=== PATIENT | male | born 1975 | race Caucasian/White ===

== ENCOUNTER 2016-11-19 10:44 | Emergency (ER) | payer SELFPAY ==
[2016-11-19 10:56] VITALS: BP 145/96
--- NOTE | 2016-11-19 11:05 | ERNOTE ---
Lower Extremity HPI - Narrative Date of Service: 11/19/16 - General Lower Extremities Pain: leg: right Time Seen by Provider: 11/19/16 10:56 Source: patient Exam Limitations: no limitations - Immun/Allergies/Home Medications Immunizations: IMMUNIZATION HX Immunizations Up to Date Yes History of Influenza Vaccine No Hx Pneumococcal Vaccination No Allergies/Adverse Reactions: Allergies Allergy/AdvReac Type Severity Reaction Status Date / Time No Known Allergies Allergy Verified 11/19/16 10:55 Home Medications: HOME MEDICATIONS Sulfamethoxazole/Trimethoprim [Bactrim Ds] 1 tab PO BID #28 tab 11/19/16 [Last Taken Unknown] - History of Present Illness Narrative: Pt. comes in with c/o R medial, anterior, lower leg wound and pain after he scratched his leg on a trailer 10 months ago. 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 Pt. states that he has had occasional fevers and chills and yellow drainage of the leg, but denies any NVD, GAURANG, CP, Numbness, or tingling. Pt. denies any Recent illness, or prehospital treatment. Review of Systems - Review of Systems Constitutional: Present: fever, chills. Absent: weakness, fatigue, malaise, weight loss EYE: Present: no symptoms reported ENT: Present: no symptoms reported Respiratory: Present: no symptoms reported. Absent: shortness of breath, cough , wheezing Cardiology: Present: no symptoms reported. Absent: chest pain, palpitations, edema Gastrointestinal/Abdominal: Present: no symptoms reported. Absent: nausea, vomiting, diarrhea Genitourinary: Present: no symptoms reported Musculoskeletal: Present: muscle pain - R anterior medial leg. Absent: back pain, joint pain Skin: Present: lesions - open blisters on lower leg Neurological: Present: no symptoms reported. Absent: headache, dizziness/light- headedness, numbness, tingling All Other Systems: All systems neg except as marked - Patient's Past Medical History Patient History - Medical: Anxiety, Other - nec fasc Patient History - Cardiac/Respiratory: No pertinent hx Patient History - Cancer: No Hx of Cancer Patient History - Surgical Procedures: Other Patient History - Other: None - Family History Father Family History - Medical: No pertinent hx, History Unknown Family History - Cardiac/Respiratory: History Unknown, Cardiac Arrest Mother Family History - Medical: History Unknown, Diabetes Type 1, Other Family History - Cardiac/Respiratory: No pertinent hx, History Unknown - Social History Living Situations: home Abuse History: No History of abuse Psych History: No pertinent hx Smoking Status: Never smoker Alcohol Use: none Drug Use: none - Immunizations Immunizations Up to Date: Yes Hx Pneumococcal Vaccination: No History of Influenza Vaccine: No Physical Exam - Physical Exam General Appearance: Present: wd/wn, alert, no apparent distress Eye Exam: Normal inspection: bilateral, PERRL: bilateral, EOMI: bilateral Ears, Nose, Throat: Present: normal ENT inspection, normal pharynx Neck: Present: normal inspection, nontender. Absent: lymphadenopathy (R), lymphadenopathy (L) Respiratory: Present: no respiratory distress, normal breath sounds, no accessory muscle use, chest nontender, lungs clear Cardiovascular/Chest: Present: regular rate, rhythm, no murmur, normal peripheral pulses Gastrointestinal/Abdominal: Present: normal bowel sounds, nontender Back Exam: Present: normal inspection Extremity Exam: Present: other - tenderness of lower leg anterior medially. 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 - Vital Signs Patient's Vital Signs:: I have reviewed the patient's vital signs. Vital Signs: Vital Signs 11/19/16 10:52 Temperature 36.8 C Pulse Rate 80 Respiratory 16 Rate Blood Pressure 145/96 O2 Sat by Pulse 98 Oximetry - X-Ray X-Ray #1 X-Ray: tibula/fibula Interpretation: Reviewed by me X-ray Comments: Findings: Within the mid to distal aspect of the medial calf, there is associated deformity of the overlying soft tissues, which was not present on the prior study from 2008. There is some thickening of the cortex involving the medial distal diaphysis of the tibia with associated well-defined and adjacent amorphous calcification. These findings most likely reflects sequela of prior infection/trauma. The calcification adjacent to the tibia may reflect myositis ossificans. Correlation with previous studies outside studies is recommended. The remaining aspects of the tibia appears intact. The fibula is within normal limits. The knee joint and ankle joint are grossly normal. IMPRESSION: 1. DEFORMITY INVOLVING THE SOFT TISSUES OVERLYING THE MEDIAL MID TO DISTAL RIGHT CALF SUGGESTING SEQUELA OF INFECTION/TRAUMA. I'M NOT CONVINCED OF AIR WITHIN THE SOFT TISSUES. 2. THICKENING THE CORTICAL BONE INVOLVING THE MEDIAL ASPECT OF THE MID TO DISTAL DIAPHYSIS OF THE TIBIA WITH ADJACENT WELL-DEFINED AMORPHOUS CALCIFICATION. THE APPEARANCE SUGGESTS MYOSITIS OSSIFICANS. CORRELATION WITH OUTSIDE STUDIES IS RECOMMENDED. Electronically signed by Juan Raza M.D.. - Progress/Reassessment Chief Complaint: Lower Extremity Pain/ Injury Departure Clinical Impression: Cellulitis Qualifiers: Site of cellulitis: extremity Site of cellulitis of extremity: lower extremity Laterality: right Qualified Code(s): L03.115 - Cellulitis of right lower limb - Departure Disposition: Home self-care Condition: Good Instructions: Cellulitis, Adult, [id number] Additional Instructions: Please follow up with primary provider in 2-3 days and follow up with wound care as scheduled may change outer bandage if needed until seen by them. Referrals: Valeriy Soto DO [Primary Care Provider] - Prescriptions: Sulfamethoxazole/Trimethoprim [Bactrim Ds] 1 tab PO BID #28 tab
--- OUTSIDE RECORDS SUMMARY | 2016-11-19 11:08 | XMS REPORT | Continuity of Care Document ---
:1975 Author Organization [facility] ([facility]) Address [address] [place] [address] Phone [phone] Care Team Providers Name Role Phone Unavailable Primary Care Provider Unavailable Source Comments This disclosure is being made pursuant to the Care Everywhere program, applicable federal and state laws, and may not contain all informaitonavailable regarding this patient.[facility] ([facility]) Active Allergies and Adverse Reactions Not on File Current Medications Not on file Active Problems Not on file Immunizations Name Dates Previously Given Next Due Td, adult unspecified 12/01/1994 Social History Tobacco Use Types Packs/Day Years Used Date Never Assessed Plan of Care Health Maintenance Due Date Last Done Comments Hepatitis B Vaccine (1 of 3 - Primary Series) 1975 Tdap Vaccine 1986 Lipid Disorder Screening 1993 MMR Vaccine 1993 Td Vaccine 12/01/2004 12/01/1994 Influenza Vaccine: Seasonal (#1) 02/16/2016 Results from Last 3 Months Not on file
[2016-11-19 11:18] LABS: Hematocrit 39.7 % (42.0-52.0); Hemoglobin 13.4 gm/dL (13.5-18.0); Mean Cell Volume 88.2 fl (78-100); Mean Corpuscular Hemoglobin 29.8 pg (27-31); Mean Corpuscular Hgb Conc 33.8 g/dl (32-36); Mean Platelet Volume 8.2 fl (6.0-9.5); Neutrophil # 3.9 K/mm3 (1.3-6.0); Neutrophil % 54.6 % (42-75.0); Platelet Count 343 K/mm3 (150-450); Red Cell Distribution Width 12.6 % (11.5-14.0); White Blood Count 7.1 K/mm3 (4.0-10.5)
[2016-11-19] MEDS ORDERED: KETOROLAC TROMETHAMINE 30 MG/ML VIAL IM ONE (11:21)
[2016-11-19] MEDS ORDERED: KETOROLAC TROMETHAMINE 30 MG/ML VIAL ONE (11:30)
[2016-11-19 11:39] LABS: Albumin * 3.3 gm/dl (3.4-5.0); Anion Gap 12.3 mmol/L (6.8-13.8); BUN/Creatinine Ratio 16.4 (9.0-21.6); Bilirubin, Total 0.3 mg/dL (0.0-1.1); Calcium * 8.8 mg/dL (7.9-10.9); Potassium 4.3 mmol/L (3.4-4.6); Total Protein 7.8 gm/dL (6.2-8.2)
== END 2016-11-19 12:09 | disposition home or self-care (01) ==
LOC: ER 10:44
DX: L03.115 Cellulitis of right lower limb (principal)

== ENCOUNTER 2017-02-11 08:46 | Emergency (ER) | payer MEDICAID ==
[2017-02-11 08:59] VITALS: BP 156/100
--- NOTE | 2017-02-11 09:07 | ERNOTE ---
Medical Problem HPI - Narrative Date of Service: 02/11/17 - General Chief Complaint: Laceration Time Seen by Provider: 02/11/17 08:54 Source: patient Exam Limitations: no limitations - Immun/Allergies/Home Medications Immunizations: IMMUNIZATION HX Immunizations Up to Date Yes History of Influenza Vaccine No Hx Pneumococcal Vaccination No Allergies/Adverse Reactions: Allergies No Known Allergies Allergy (Verified 02/11/17 08:58) Home Medications: HOME MEDICATIONS Amox Tr/Potassium Clavulanate [Augmentin 875-125 Tablet] 875 mg PO Q12H #14 tab 02/11/17 [Last Taken Unknown] - History of Present History Narrative: Patient is right handed. Lacerated hes left hand using a knife he had gotten at a sale. Laceration left hand near left index finger knuckle. He denies other injuries. Minimal pain at laceration. Full movement of finger. No N/T/ W. No other injuries. dT within the last 5 years and he is sure of this. Timing: constant Severity: mild Modifying Factors - (Improves): Present: other - nothing Modifying Factors - (Worsens): Present: other - nothing Review of Systems - Review of Systems Constitutional: Absent: fever Musculoskeletal: Present: other - no joint pain Skin: Present: See HPI Neurological: Absent: weakness, numbness, tingling - Patient's Past Medical History Patient History - Medical: Anxiety, Other Patient History - Cardiac/Respiratory: No pertinent hx Patient History - Cancer: No Hx of Cancer Patient History - Surgical Procedures: Other Patient History - Other: None - Family History Father Family History - Medical: No pertinent hx, History Unknown Family History - Cardiac/Respiratory: History Unknown, Cardiac Arrest Mother Family History - Medical: History Unknown, Diabetes Type 1, Other Family History - Cardiac/Respiratory: No pertinent hx, History Unknown - Social History Living Situations: home Abuse History: No History of abuse Psych History: No pertinent hx Smoking Status: Never smoker Alcohol Use: occasionally Drug Use: none - Immunizations Immunizations Up to Date: Yes Hx Pneumococcal Vaccination: No History of Influenza Vaccine: No Physical Exam - Physical Exam General Appearance: Present: alert, no apparent distress Head Exam: Present: normal inspection Respiratory: Present: no respiratory distress Cardiovascular/Chest: Present: normal peripheral pulses Extremity Exam: Present: other - There is a 2 cm laceration left MCP joint area left index finger. Into subQ but no FB. No invasion of the joint but this appears to approximate the tendon sheath. No tendon involvement though. Finger taken through full ROM and no tendon injury noted but to the tendon sheath by my exam. No joint capsule involvement found. Full extension strength and full flexion. Full FDS and FDP strength. Brish capillar refill, no bone tenderness. nothing to suggest need for imaging. Neurological Exam: Present: alert, no motor/sensory deficits, other - sensation to LT intact and full motor Skin Exam: Present: normal color, warm/dry, other - no nail bed injury and brisk capillary refill in finger ED Progress - Vital Signs Patient's Vital Signs:: I have reviewed the patient's vital signs. Vital Signs: Vital Signs 02/11/17 08:52 Temperature 36.8 C Pulse Rate 76 Respiratory 16 Rate Blood Pressure 156/100 O2 Sat by Pulse 98 Oximetry - Progress/Reassessment Chief Complaint: Laceration Progress Note-Subjective: 02/11/17 09:23 D/W Dr Maya. Abx and Tuesday office follow-up. Pt understnds. I discussed warning signs and reasons to return as well as the need for close f/ u. Procedures Left Hand Anesthesia: 1% Lidocaine I & D Prep: sterile drapes applied Length of Repair/Wound (cm): 2 Wound's Depth/Shape: into subcutaneous, linear Wound Explored: clean, to base, no foreign body Wound Intervention: irrigated w/saline Distal NVT: neuro/vasc intact Wound Repaired With: sutures Suture Size/Type: 3-0, nylon Number of Sutures: 4 Layer Closure: Simple Estimated blood loss (ml): 0 Wound Dressing: sterile dressing applied, splint applied Complications: Pt greer procedure well Departure - Departure Clinical Impression: Hand laceration Disposition: Home self-care Condition: Stable Instructions: Laceration Care, Adult, [id number] Additional Instructions: Rest. Antibiotics as directed. Orthopedics will re-check your hand in the office next Tuesday. Call for an appointment. Return for signs of infection, increased pain, drainage, numbness, tingling, weakness, loss of function or if your condition worsens or changes in any way. Prescriptions: Amox Tr/Potassium Clavulanate [Augmentin 875-125 Tablet] 875 mg PO Q12H #14 tab
== END 2017-02-11 09:37 | disposition home or self-care (01) ==
LOC: ER 08:46
PROC: 0JQK0ZZ Repair Left Hand Subcutaneous Tissue and Fascia, Open Approach (ICD-10-PCS; principal; 2017-02-11)
DX: S61.412A Laceration without foreign body of left hand, initial encounter (principal); W26.0XXA Contact with knife, initial encounter; Y93.9 Activity, unspecified; Y92.9 Unspecified place or not applicable

== ENCOUNTER 2017-04-06 21:01 | Emergency (ER) | payer MEDICAID ==
[2017-04-06] MEDS ORDERED: KETOROLAC TROMETHAMINE 60 MG/2 ML VIAL IM ONE ×2 (22:13→22:16)
--- NOTE | 2017-04-06 22:14 | ERNOTE ---
Medical Problem HPI - General Chief Complaint: Laceration Time Seen by Provider: 04/06/17 22:10 - Immun/Allergies/Home Medications Immunizations: IMMUNIZATION HX Immunizations Up to Date Yes History of Influenza Vaccine No Hx Pneumococcal Vaccination No Allergies/Adverse Reactions: Allergies No Known Allergies Allergy (Verified 04/07/17 17:36) Home Medications: HOME MEDICATIONS Cephalexin 500 mg PO QID #40 tab 04/07/17 [Last Taken Unknown] oxyCODONE HCL/ACETAMINOPHEN [Percocet 5 MG/325 MG] 1 - 2 tab PO Q6H PRN #20 tab 04/07/17 [Last Taken Unknown] - History of Present History Narrative: Pt tripped over something in his yard lacerating his right lower lateral leg. Timing: constant Severity: moderate Modifying Factors - (Worsens): Present: movement Review of Systems - Review of Systems Constitutional: Absent: recent illness Musculoskeletal: Present: no symptoms reported Skin: Present: See HPI Neurological: Present: no symptoms reported - Patient's Past Medical History Patient History - Medical: No pertinent hx Patient History - Cardiac/Respiratory: No pertinent hx Patient History - Cancer: No Hx of Cancer Patient History - Surgical Procedures: Orthopedic Patient History - Other: None - Family History Father Family History - Medical: No pertinent hx, History Unknown Family History - Cardiac/Respiratory: History Unknown, Cardiac Arrest Mother Family History - Medical: History Unknown, Diabetes Type 1, Other Family History - Cardiac/Respiratory: No pertinent hx, History Unknown - Social History Living Situations: alone Abuse History: No History of abuse Psych History: No pertinent hx Smoking Status: Never smoker Have you smoked in the past 12 months: No Do you dip or chew tobacco: No Alcohol Use: heavy Drug Use: none - Immunizations Immunizations Up to Date: Yes Hx Pneumococcal Vaccination: No History of Influenza Vaccine: No Physical Exam - Physical Exam General Appearance: Present: wd/wn, alert, no apparent distress Head Exam: Present: normal inspection, no evidence of injury Respiratory: Present: no respiratory distress, no accessory muscle use Back Exam: Present: normal range of motion Extremity Exam: Present: other - right lateral leg laceration vertical with a small horizontal leg on the top Neurological Exam: Present: alert, oriented, normal mood/affect, no motor/ sensory deficits Skin Exam: Present: normal color, warm/dry, other - 23 cm vertical laceration right lateral leg. ED Progress - Vital Signs Vital Signs: Vital Signs 04/06/17 04/06/17 21:03 21:49 Temperature 36.0 C L Pulse Rate 90 86 Respiratory 16 16 Rate Blood Pressure 149/94 125/69 O2 Sat by Pulse 98 98 Oximetry - Progress/Reassessment Chief Complaint: Laceration Procedures Right Leg Anesthesia: Lidocaine w/ Epi, Local I & D Prep: betadine prep Length of Repair/Wound (cm): 23 Wound's Depth/Shape: into subcutaneous, linear, irregular Wound Explored: clean Distal NVT: neuro/vasc intact Suture Size/Type: 4-0, nylon Number of Sutures: 37 Layer Closure: Intermediate Deep Layer Suture Size/Type: 3-0, other - vicryl Number Deep Layer Sutures: 1 Estimated blood loss (ml): 100 Wound Dressing: sterile dressing applied Complications: Pt greer procedure well Departure Clinical Impression: Laceration - Departure Disposition: Home Follow Up Needed Condition: Good Instructions: Laceration Care, Adult, [id number] Additional Instructions: have your stitches out in 10-14 days. Keep wound clean and dry. Referrals: Valeriy Soto DO [Primary Care Provider] -
[2017-04-06] MEDS ORDERED: LIDOCAINE HCL 20 ML VIAL ONE (22:30)
[2017-04-06 23:43] VITALS: BP 124/60
== END 2017-04-07 00:22 | disposition home or self-care (01) ==
LOC: ER 21:01
PROC: 0JQN0ZZ Repair Right Lower Leg Subcutaneous Tissue and Fascia, Open Approach (ICD-10-PCS; principal; 2017-04-06)
DX: S81.811A Laceration without foreign body, right lower leg, initial encounter (principal); W01.0XXA Fall on same level from slipping, tripping and stumbling without subsequent striking against object, initial encounter; Y93.9 Activity, unspecified; Y92.9 Unspecified place or not applicable

== ENCOUNTER 2017-04-07 17:24 | Emergency (ER) | payer MEDICAID ==
[2017-04-07] MEDS ORDERED: oxyCODONE HCL/ACETAMINOPHEN 1 TAB TABLET PO ONE (18:30)
[2017-04-07] MEDS ORDERED: CEPHALEXIN MONOHYDRATE 250 MG CAPSULE PO ONE (18:30)
[2017-04-07] MEDS ORDERED: CEPHALEXIN MONOHYDRATE 250 MG CAPSULE ONE (18:38)
[2017-04-07] MEDS ORDERED: oxyCODONE HCL/ACETAMINOPHEN 1 TAB TABLET ONE (18:38)
[2017-04-07 18:46] VITALS: BP 138/67
--- NOTE | 2017-04-07 19:01 | ERNOTE ---
Lower Extremity HPI - Narrative Date of Service: 04/07/17 - General Lower Extremities Pain: leg: right Time Seen by Provider: 04/07/17 18:22 Source: patient, RN notes reviewed, old records Exam Limitations: no limitations - Immun/Allergies/Home Medications Immunizations: IMMUNIZATION HX Immunizations Up to Date Yes History of Influenza Vaccine No Hx Pneumococcal Vaccination No Allergies/Adverse Reactions: Allergies Allergy/AdvReac Type Severity Reaction Status Date / Time No Known Allergies Allergy Verified 04/07/17 17:36 Home Medications: HOME MEDICATIONS Cephalexin 500 mg PO QID #40 tab 04/07/17 [Last Taken Unknown] oxyCODONE HCL/ACETAMINOPHEN [Percocet 5 MG/325 MG] 1 - 2 tab PO Q6H PRN #20 tab 04/07/17 [Last Taken Unknown] - History of Present Illness Narrative: 42 y/o male returns to the ED for pain related to the laceration he was seen here for yesterday. He cut his leg on a post and received 37 stitches. He reports needing pain medication. Occurred: yesterday Location of Incident: home Prior Treament: Reports: recently seen, treated by physician. Denies: currently on antibiotics Review of Systems - Review of Systems Constitutional: Absent: fever, chills EYE: Present: no symptoms reported ENT: Present: no symptoms reported Respiratory: Present: no symptoms reported Cardiology: Present: no symptoms reported Gastrointestinal/Abdominal: Absent: nausea, vomiting Genitourinary: Present: no symptoms reported Musculoskeletal: Absent: joint pain, joint swelling Skin: Absent: rash, lesions, change in color Neurological: Absent: headache, dizziness/light-headedness, weakness, numbness, tingling Endocrine: Present: no symptoms reported Hematologic/Lymphatic: Present: no symptoms reported Psych: Present: no symptoms reported - Patient's Past Medical History Patient History - Medical: No pertinent hx Patient History - Cardiac/Respiratory: No pertinent hx Patient History - Cancer: No Hx of Cancer Patient History - Surgical Procedures: Orthopedic Patient History - Other: None - Family History Father Family History - Medical: No pertinent hx, History Unknown Family History - Cardiac/Respiratory: History Unknown, Cardiac Arrest Mother Family History - Medical: History Unknown, Diabetes Type 1, Other Family History - Cardiac/Respiratory: No pertinent hx, History Unknown - Social History Living Situations: home Abuse History: No History of abuse Psych History: No pertinent hx Smoking Status: Never smoker Alcohol Use: heavy Drug Use: none - Immunizations Immunizations Up to Date: Yes Hx Pneumococcal Vaccination: No History of Influenza Vaccine: No Physical Exam - Physical Exam General Appearance: Present: wd/wn, alert, no apparent distress, other - Poor hygiene Respiratory: Present: no respiratory distress, no accessory muscle use Extremity Exam: Present: normal except - - sutures intact to right lower leg, mild warmth and erythema surrounding wound, no drainage, normal range of motion , no edema Neurological Exam: Present: alert, oriented, normal mood/affect, no motor/ sensory deficits Skin Exam: Present: warm/dry ED Progress - Vital Signs Patient's Vital Signs:: I have reviewed the patient's vital signs. Vital Signs: Vital Signs 04/07/17 04/07/17 17:36 18:44 Temperature 37.5 C 37.2 C Pulse Rate 88 84 Respiratory 20 Rate Blood Pressure 145/65 138/67 O2 Sat by Pulse 96 97 Oximetry - Progress/Reassessment Chief Complaint: Lower Extremity Pain/ Injury Progress:: Improved Departure Clinical Impression: Laceration Cellulitis Qualifiers: Site of cellulitis: extremity Site of cellulitis of extremity: lower extremity Laterality: right Qualified Code(s): L03.115 - Cellulitis of right lower limb - Departure Disposition: Home Follow Up Needed Condition: Stable Instructions: Cellulitis, Adult, [id number] Additional Instructions: Keep wound clean and dry Elevate your leg whenever able Have sutures removed in 10 to 14 days Return to ER for fever, vomiting, worsening pain or other concerns Prescriptions: Cephalexin 500 mg PO QID #40 tab oxyCODONE HCL/ACETAMINOPHEN [Percocet 5 MG/325 MG] 1 - 2 tab PO Q6H PRN #20 tab PRN Reason: Pain
== END 2017-04-07 19:11 | disposition home or self-care (01) ==
LOC: ER 17:24
DX: S81.811A Laceration without foreign body, right lower leg, initial encounter (principal); L03.115 Cellulitis of right lower limb; W45.8XXA Other foreign body or object entering through skin, initial encounter; Y93.9 Activity, unspecified; Y92.007 Garden or yard of unspecified non-institutional (private) residence as the place of occurrence of the external cause

== ENCOUNTER 2017-04-10 12:32 | Emergency (ER) | payer MEDICAID ==
[2017-04-10 12:46] VITALS: BP 156/84
--- NOTE | 2017-04-10 13:12 | ERNOTE ---
Lower Extremity HPI - Narrative Date of Service: 04/10/17 - General Lower Extremities Pain: leg: right Time Seen by Provider: 04/10/17 12:57 Source: patient, RN notes reviewed, old records Exam Limitations: no limitations - Immun/Allergies/Home Medications Immunizations: IMMUNIZATION HX Immunizations Up to Date Yes History of Influenza Vaccine No Hx Pneumococcal Vaccination No Allergies/Adverse Reactions: Allergies Allergy/AdvReac Type Severity Reaction Status Date / Time No Known Allergies Allergy Verified 04/10/17 12:46 Home Medications: HOME MEDICATIONS Cephalexin 500 mg PO QID #40 tab 04/07/17 [Last Taken Unknown] Sulfamethoxazole/Trimethoprim [Bactrim Ds] 1 tab PO BID #20 tab 04/10/17 [Last Taken Unknown] oxyCODONE HCL/ACETAMINOPHEN [Percocet 5 MG/325 MG] 1 - 2 tab PO Q6H PRN #20 tab 04/10/17 [Last Taken Unknown] - History of Present Illness Narrative: Derik is a 42 year old male who returns to the ER for an infection in his left lower leg laceration. He was initially seen on 04/06 when he cut his leg on a bolt sticking out of a post in his yard. He received 37 stitches. I saw him the following day. He presented here for pain medication. When I examined the wound , it was noted to have mild surrounding erythema. I started him on cephalexin. He returns today with ongoing pain and increasing erythema and edema. He denies fevers. He has a history of nonhealing wounds in the left lower leg, as well as MRSA and necrotizing fascitis. Prior Treament: Reports: recently seen, currently on antibiotics Review of Systems - Review of Systems Constitutional: Absent: fever, chills, malaise EYE: Present: no symptoms reported ENT: Present: no symptoms reported Respiratory: Present: no symptoms reported Cardiology: Present: no symptoms reported Gastrointestinal/Abdominal: Absent: nausea, vomiting, abdominal pain, eating less, drinking less Genitourinary: Present: no symptoms reported Musculoskeletal: Present: muscle pain. Absent: joint pain, joint swelling Skin: Present: change in color. Absent: rash, lesions, lumps Neurological: Absent: headache, dizziness/light-headedness Endocrine: Present: no symptoms reported Hematologic/Lymphatic: Present: no symptoms reported Psych: Present: no symptoms reported - Patient's Past Medical History Patient History - Medical: Other - MRSA, Necrotizing fascitis Patient History - Cardiac/Respiratory: No pertinent hx Patient History - Cancer: No Hx of Cancer Patient History - Surgical Procedures: Orthopedic Patient History - Other: None - Family History Father Family History - Medical: No pertinent hx, History Unknown Family History - Cardiac/Respiratory: History Unknown, Cardiac Arrest Mother Family History - Medical: History Unknown, Diabetes Type 1, Other Family History - Cardiac/Respiratory: No pertinent hx, History Unknown - Social History Living Situations: other Abuse History: No History of abuse Psych History: No pertinent hx Smoking Status: Former smoker Have you smoked in the past 12 months: No Do you dip or chew tobacco: No Alcohol Use: sober Drug Use: none - Immunizations Immunizations Up to Date: Yes Hx Pneumococcal Vaccination: No History of Influenza Vaccine: No Physical Exam - Physical Exam General Appearance: Present: alert, no apparent distress, obese Respiratory: Present: no respiratory distress, no accessory muscle use Cardiovascular/Chest: Present: normal peripheral pulses Extremity Exam: Present: normal range of motion, extremity edema - mild, right lower leg, other - moderate tenderness to right lower leg surrounding wound. Absent: joint redness, joint swelling Neurological Exam: Present: alert, oriented, normal mood/affect, no motor/ sensory deficits Skin Exam: Present: warm/dry, other - Right lower leg erythematous and warm to touch up to knee ED Progress - Results and Orders Patient's Lab Results:: I have reviewed the patient's lab results. - Vital Signs Patient's Vital Signs:: I have reviewed the patient's vital signs. Vital Signs: Vital Signs 04/10/17 12:41 Temperature 36.1 C L Pulse Rate 90 Respiratory 14 Rate Blood Pressure 156/84 O2 Sat by Pulse 97 Oximetry - X-Ray X-Ray #1 X-Ray: tibula/fibula - Right Interpretation: Interp. by me X-ray Comments: No soft tissue gas noted, old appearing cortical irregularity and soft tissue defect in medical aspect of extremity at the location of his old wound - Progress/Reassessment Chief Complaint: Lower Extremity Pain/ Injury Progress:: Unchanged Plan - Plan Plan: Wound and blood cultures pending. Bactrim initiated since previous wound cultures were sensitive to it. Discussed hospitalization for IV antibiotics given the history of the nonhealing wound in the medial aspect of the leg and that a severe infection again in the same extremity could lead to loss of a portion of the leg. Patient does not want to be hospitalized at the present time. He is agreeable to returning if his symptoms worsen. Departure Clinical Impression: Laceration of lower leg with infection Qualifiers: Encounter type: initial encounter Laterality: right Qualified Code(s): S81.811A - Laceration without foreign body, right lower leg, initial encounter - Departure Disposition: Home Follow Up Needed Condition: Stable Instructions: Wound Infection, [id number] Additional Instructions: Keep wound clean - wash at least twice a day with soap and water Elevate leg as much as possible See Dr. Soto as scheduled Return to the ER for fever, vomiting, worsening pain, or other concerns Referrals: Valeriy Soto DO [Primary Care Provider] - Prescriptions: oxyCODONE HCL/ACETAMINOPHEN [Percocet 5 MG/325 MG] 1 - 2 tab PO Q6H PRN #20 tab PRN Reason: Pain Sulfamethoxazole/Trimethoprim [Bactrim Ds] 1 tab PO BID #20 tab
[2017-04-10 13:36] LABS: Mean Cell Volume 88.4 fl (78-100); Mean Corpuscular Hemoglobin 30.4 pg (27-31); Mean Corpuscular Hgb Conc 34.4 g/dl (32-36); Neutrophil % 62.7 % (42-75.0); Platelet Count 236 K/mm3 (150-450); Red Blood Count 3.62 M/mm3 (4.7-6.0); Red Cell Distribution Width 12.4 % (11.5-14.0)
[2017-04-10 14:00] LABS: Anion Gap 11.1 mmol/L (6.8-13.8); Bilirubin, Total 0.2 mg/dL (0.0-1.1); CRP 15.3 mg/dL (0.0-0.9); Calcium * 8.5 mg/dL (7.9-10.9); Potassium 4.1 mmol/L (3.4-4.6); Total Protein 7.2 gm/dL (6.2-8.2)
[2017-04-10] MEDS ORDERED: SULFAMETHOXAZOLE/TRIMETHOPRIM 1 TAB TABLET PO ONE (14:38)
[2017-04-10] MEDS ORDERED: SULFAMETHOXAZOLE/TRIMETHOPRIM 1 TAB TABLET ONE (14:42)
== END 2017-04-10 14:44 | disposition home or self-care (01) ==
LOC: ER 12:32
DX: S81.811D Laceration without foreign body, right lower leg, subsequent encounter (principal); L08.9 Local infection of the skin and subcutaneous tissue, unspecified; W26.8XXD Contact with other sharp object(s), not elsewhere classified, subsequent encounter